=== PATIENT | female | born 1950 | race Caucasian/White ===

== ENCOUNTER 2021-02-01 13:53 | Outpatient (REF) | payer MEDICARE, SELFPAY | END 2021-02-01 13:54 | disposition home or self-care (01) | LOC: HO.LNP 13:53 | PROVIDERS: Visit Provider Internal Medicine | DX: R35.0 Frequency of micturition (principal) | CPT/HCPCS: 87086; 87088; 87186 ==

== ENCOUNTER 2021-07-09 09:57 | Outpatient (REF) | payer MEDICARE, SELFPAY ==
[2021-07-09 11:11] LABS: Hematocrit 46.7 % (37.0-47.0); Hemoglobin 15.6 g/dl (12.0-16.0); Mean Corpuscular HGB Conc 33.4 g/dl (31.0-35.0); Mean Corpuscular Hemoglobin 29.9 pg (27.0-33.0); Mean Corpuscular Volume 89.5 fL (80.0-98.0); Mean Platelet Volume 9.9 fL (9.4-12.3); Platelet Count 262 X10*3/uL (160-400); Red Blood Count 5.22 X10*6/uL (4.20-5.50); Red Cell Distribution Width 14.2 % (11.0-16.0)
[2021-07-09 12:22] LABS: Alanine Aminotransferase 18 U/L (0-31); Albumin Level 4.2 g/dL (3.5-5.0); Alkaline Phosphatase 88 U/L (39-117); Anion Gap 12 (12-20); Aspartate Amino Transferase 18 U/L (5-31); Bilirubin Total 0.7 mg/dL (0.0-1.0); Blood Urea Nitrogen 15 mg/dL (9-16); Calcium 9.6 mg/dL (8.4-10.2); Carbon Dioxide 29 mmol/L (22-29); Chloride 100 mmol/L (96-108); Cholesterol 195 mg/dL; Estimated Glomerular Filt Rate > 60; Glucose Fasting 92 mg/dL (60-99); HDL Cholesterol 40 mg/dL; LDL Cholesterol Calculated 123 mg/dl; Sodium 137 mmol/L (135-145); Total Protein 6.8 g/dL (6.5-8.0); Triglycerides 160 mg/dL
== END 2021-07-09 09:58 | disposition home or self-care (01) ==
LOC: HO.MANLDS 09:57
PROVIDERS: PCP Internal Medicine; Visit Provider Internal Medicine
DX: E78.00 Pure hypercholesterolemia, unspecified (principal); I10 Essential (primary) hypertension
CPT/HCPCS: 36415; 80053; 80061; 85027

== ENCOUNTER 2022-01-15 09:48 | Outpatient (REF) | payer MEDICARE, SELFPAY ==
[2022-01-15 11:26] LABS: MANUAL DIFF FLAG NO
[2022-01-15 11:31] LABS: Basophils Absolute Auto 0.1 X10*3/uL (0.0-0.2); Basophils Percent Auto 0.8 % (0-2); Eosinophils Absolute Auto 0.2 X10*3/uL (0.0-0.4); Eosinophils Percent Auto 2.9 % (0-4); Hemoglobin 15.3 g/dl (12.0-16.0); Imm Gran Abs Auto 0.03 X10*3/uL (0.00-0.03); Imm Gran Pct Auto 0.4 % (0.0-0.4); Lymphocytes Absolute Auto 1.9 X10*3/uL (1.2-4.9); Lymphocytes Percent Auto 26.2 % (20-40); Mean Corpuscular HGB Conc 33.3 g/dl (31.0-35.0); Mean Corpuscular Hemoglobin 29.5 pg (27.0-33.0); Mean Corpuscular Volume 88.6 fL (80.0-98.0); Mean Platelet Volume 9.8 fL (9.4-12.3); Monocytes Absolute Auto 0.5 X10*3/uL (0.1-1.2); Monocytes Percent Auto 6.8 % (2-11); Neutrophils Absolute Auto 4.6 x10*3/uL (2.0-8.3); Neutrophils Percent Auto 62.9 % (45-73); Platelet Count 281 X10*3/uL (160-400); Red Blood Count 5.19 X10*6/uL (4.20-5.50); White Blood Count 7.3 X10*3/uL (4.8-10.8)
[2022-01-15 11:44] LABS: Alanine Aminotransferase 12 U/L (0-31); Alkaline Phosphatase 84 U/L (39-117); Anion Gap 11 (12-20); Aspartate Amino Transferase 17 U/L (5-31); Bilirubin Total 0.7 mg/dL (0.0-1.0); Blood Urea Nitrogen 12 mg/dL (9-16); Calcium 9.1 mg/dL (8.4-10.2); Carbon Dioxide 28 mmol/L (22-29); Chloride 101 mmol/L (96-108); Cholesterol 174 mg/dL; Estimated Glomerular Filt Rate > 60; Glucose Random 98 mg/dL (60-115); HDL Cholesterol 39 mg/dL; LDL Cholesterol Calculated 110 mg/dl; Potassium 3.9 mmol/L (3.3-5.1); Total Protein 6.3 g/dL (6.5-8.0); Triglycerides 125 mg/dL
[2022-01-15 12:52] LABS: Sodium 136 mmol/L (135-145)
== END 2022-01-15 09:49 | disposition home or self-care (01) ==
LOC: HO.MANLDS 09:48
PROVIDERS: Visit Provider Physician Assistant
DX: E78.2 Mixed hyperlipidemia (principal)
CPT/HCPCS: 36415; 80053; 80061; 85025

== ENCOUNTER 2022-09-30 09:21 | Outpatient (REF) | payer OTHER, MEDICARE, SELFPAY ==
[2022-09-30 11:31] LABS: MANUAL DIFF FLAG NO
[2022-09-30 11:59] LABS: Basophils Absolute Auto 0.1 X10*3/uL (0.0-0.2); Basophils Percent Auto 0.8 % (0-2); Eosinophils Absolute Auto 0.2 X10*3/uL (0.0-0.4); Eosinophils Percent Auto 2.4 % (0-4); Hematocrit 47.7 % (37.0-47.0); Hemoglobin 15.7 g/dl (12.0-16.0); Imm Gran Abs Auto 0.02 X10*3/uL (0.00-0.03); Imm Gran Pct Auto 0.3 % (0.0-0.4); Lymphocytes Absolute Auto 1.9 X10*3/uL (1.2-4.9); Lymphocytes Percent Auto 29.6 % (20-40); Mean Corpuscular HGB Conc 32.9 g/dl (31.0-35.0); Mean Corpuscular Hemoglobin 28.8 pg (27.0-33.0); Mean Corpuscular Volume 87.5 fL (80.0-98.0); Mean Platelet Volume 10.3 fL (9.4-12.3); Monocytes Absolute Auto 0.5 X10*3/uL (0.1-1.2); Neutrophils Absolute Auto 3.7 x10*3/uL (2.0-8.3); Neutrophils Percent Auto 58.9 % (45-73); Platelet Count 254 X10*3/uL (160-400); Red Blood Count 5.45 X10*6/uL (4.20-5.50); Red Cell Distribution Width 14.9 % (11.0-16.0); White Blood Count 6.4 X10*3/uL (4.8-10.8)
[2022-09-30 13:41] LABS: Alanine Aminotransferase 13 U/L (0-31); Alkaline Phosphatase 89 U/L (39-117); Anion Gap 13 (12-20); Aspartate Amino Transferase 18 U/L (5-31); Blood Urea Nitrogen 17 mg/dL (9-16); Calcium 9.4 mg/dL (8.4-10.2); Carbon Dioxide 32 mmol/L (22-29); Chloride 98 mmol/L (96-108); Cholesterol 187 mg/dL; Estimated Glomerular Filt Rate > 60; Glucose Fasting 92 mg/dL (60-99); HDL Cholesterol 37 mg/dL; LDL Cholesterol Calculated 111 mg/dl; Potassium 3.5 mmol/L (3.3-5.1); Sodium 139 mmol/L (135-145); Total Protein 6.4 g/dL (6.5-8.0); Triglycerides 195 mg/dL
[2022-09-30 13:59] LABS: Vitamin D 25-OH Total 31.4 ng/mL (>30)
== END 2022-09-30 09:22 | disposition home or self-care (01) ==
LOC: HO.MANLDS 09:21
PROVIDERS: Visit Provider Internal Medicine
DX: E78.2 Mixed hyperlipidemia (principal); I10 Essential (primary) hypertension; E55.9 Vitamin D deficiency, unspecified
CPT/HCPCS: 36415; 80053; 80061; 82306; 85025

== ENCOUNTER 2023-03-24 09:47 | Outpatient (REF) | payer OTHER, MEDICARE, SELFPAY ==
[2023-03-24 13:15] LABS: MANUAL DIFF FLAG NO
[2023-03-24 13:39] LABS: Basophils Percent Auto 0.7 % (0-2); Eosinophils Absolute Auto 0.1 X10*3/uL (0.0-0.4); Eosinophils Percent Auto 1.7 % (0-4); Hematocrit 45.2 % (37.0-47.0); Hemoglobin 15.1 g/dl (12.0-16.0); Imm Gran Abs Auto 0.03 X10*3/uL (0.00-0.03); Imm Gran Pct Auto 0.5 % (0.0-0.4); Lymphocytes Absolute Auto 1.5 X10*3/uL (1.2-4.9); Lymphocytes Percent Auto 25.6 % (20-40); Mean Corpuscular HGB Conc 33.4 g/dl (31.0-35.0); Mean Corpuscular Hemoglobin 29.7 pg (27.0-33.0); Mean Corpuscular Volume 88.8 fL (80.0-98.0); Mean Platelet Volume 10.8 fL (9.4-12.3); Monocytes Absolute Auto 0.5 X10*3/uL (0.1-1.2); Neutrophils Absolute Auto 3.7 x10*3/uL (2.0-8.3); Neutrophils Percent Auto 63.5 % (45-73); Platelet Count 225 X10*3/uL (160-400); Red Blood Count 5.09 X10*6/uL (4.20-5.50); Red Cell Distribution Width 15.5 % (11.0-16.0); White Blood Count 5.8 X10*3/uL (4.8-10.8)
[2023-03-24 13:57] LABS: Alanine Aminotransferase 13 U/L (0-31); Alkaline Phosphatase 77 U/L (39-117); Anion Gap 10 (12-20); Aspartate Amino Transferase 19 U/L (5-31); Blood Urea Nitrogen 19 mg/dL (9-16); Calcium 9.6 mg/dL (8.4-10.2); Carbon Dioxide 31 mmol/L (22-29); Chloride 99 mmol/L (96-108); Cholesterol 183 mg/dL (<200); Estimated Glomerular Filt Rate > 60; Glucose Random 92 mg/dL (60-115); HDL Cholesterol 38 mg/dL (>40); LDL Cholesterol Calculated 109 mg/dL (<100); Potassium 3.6 mmol/L (3.3-5.1); Sodium 136 mmol/L (135-145); Total Protein 6.7 g/dL (6.5-8.0); Triglycerides 181 mg/dL (<150)
== END 2023-03-24 09:48 | disposition home or self-care (01) ==
LOC: HO.MANLDS 09:47
PROVIDERS: Visit Provider Physician Assistant
DX: I10 Essential (primary) hypertension (principal)
CPT/HCPCS: 36415; 80053; 80061; 85025

== ENCOUNTER 2024-10-03 08:58 | Outpatient (REF) | payer MEDICARE, SELFPAY ==
[2024-10-03 14:18] LABS: Cholesterol 133 mg/dL (<200); HDL Cholesterol 42 mg/dL (>40); LDL Cholesterol Calculated 63 mg/dL (<100); Triglycerides 144 mg/dL (<150)
== END 2024-10-03 08:59 | disposition home or self-care (01) ==
LOC: HO.MANLDS 08:58
PROVIDERS: Visit Provider Internal Medicine
DX: E78.2 Mixed hyperlipidemia (principal)
CPT/HCPCS: 36415; 80061

== ENCOUNTER 2024-11-15 08:55 | Outpatient (REF) | payer MEDICARE, SELFPAY ==
--- OUTSIDE RECORDS SUMMARY | 2024-11-15 09:20 | XMS_ITS | Data Portability ---
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) [facility] MODERATE MUST MEET 2 OUT OF 3 ELEMENTS: PROBLEMS, DATA OR RISK ELEMENT 1: PROBLEMS ADDRESSED 1 OR MORE CHRONIC ILLNESS WITH EXACERBATION OR 2 OR MORE STABLE CHRONIC ILLNESSES OR 1 UNDIAGNOSED NEW PROBLEM OR 1 ACUTE ILLNESS W/SYMPTOMS OR 1 ACUTE COMPLICATED INJURY ELEMENT 2: DATA MUST MEET 1 OF 3 CATEGORIES CATEGORY 1: REVIEW OF PRIOR EXTERNAL NOTES, REVIEW OF RESULTS, ORDERING OF EACH TEST, ASSESSMENT REQUIRING INDEPENDENT HISTORIAN OR CATEGORY 2: INDEPENDENT INTERPRETATION OF TESTS BY ANOTHER PHYSICIAN OR SPECIALIST OR CATEGORY 3: DISCUSSION OF MGT OR TEST INTERPRETATION W/EXTERNAL PHYSICIAN OR SPECIALIST ELEMENT 3: RISK RISK OF COMPLICATIONS AND/OR MORBIDITY OR MORTALITY OF PATIENT MANAGEMENT PROVIDER MUST THOROUGHLY DOCUMENT EACH ELEMENT THAT IS COVERED Not available 03/16/2024 11:34:42 08/31/2024 08/31/2024 [id number] [place] [address] (SHIRT CLOSER) MDM MODERATE MUST MEET 2 OUT OF 3 ELEMENTS: PROBLEMS, DATA OR RISK ELEMENT 1: PROBLEMS ADDRESSED 1 OR MORE CHRONIC ILLNESS WITH EXACERBATION OR 2 OR MORE STABLE CHRONIC ILLNESSES OR 1 UNDIAGNOSED NEW PROBLEM OR 1 ACUTE ILLNESS W/SYMPTOMS OR 1 ACUTE COMPLICATED INJURY ELEMENT 2: DATA MUST MEET 1 OF 3 CATEGORIES CATEGORY 1: REVIEW OF PRIOR EXTERNAL NOTES, REVIEW OF RESULTS, ORDERING OF EACH TEST, ASSESSMENT REQUIRING INDEPENDENT HISTORIAN OR CATEGORY 2: INDEPENDENT INTERPRETATION OF TESTS BY ANOTHER PHYSICIAN OR SPECIALIST OR CATEGORY 3: DISCUSSION OF MGT OR TEST INTERPRETATION W/EXTERNAL PHYSICIAN OR SPECIALIST ELEMENT 3: RISK RISK OF COMPLICATIONS AND/OR MORBIDITY OR MORTALITY OF PATIENT MANAGEMENT PROVIDER MUST THOROUGHLY DOCUMENT EACH ELEMENT THAT IS COVERED The patient presented to their appointment today for multiple concerns requiring moderate to high-level decision making and took over 40-45 minutes for an adequate and appropriate history, exam, assessment and treatment plan. This appointment was done with an established patient. Not available 08/31/2024 11:36:26 Plan of Treatment Reminders Order Date Submit Date Provider Last Modified By Organization Details Last Modified Time Details Appointments FOLLOW UP 15 2024 01:45P M DR HAINES Not available Not available Not available MEDICARE ANNUAL WELLNESS 2024 11:45A M DR HAINES Not available Not available Not available Lab CMP, serum or plasma 2024 025 [facility], [place], [address], 07/26/2024 13:38:12 hemoglobi n A1c, QN, blood 2024 025 [facility], [place], [address], 07/26/2024 14:12:39 CBC w/ auto diff 2024 025 [facility], [place], [address], 07/19/2024 15:44:35 Referral dermatolo gist referral 2023 024 [facility], [address] [place] [address], [address], 04/13/2024 09:14:48 Procedures None recorded. Surgeries None recorded. Imaging US, extremity , nonvascul ar, limited - right arm/forea rm after sig hematoma 2024 025 [facility] Central Scheduling (Not Breast), [address] [place], [address], 08/19/2024 10:02:26 Medication Orders metoprolo l succinate ER 100 mg tablet,ex tended release 24 hr 2024 025 [facility], [address], [place], [address], 08/31/2024 11:30:47 valsartan 80 mg tablet 2024 025 [facility], [address] [place] [address], [address], 08/31/2024 11:30:46 rosuvasta tin 40 mg tablet 2024 025 [facility], [address] [place] [address], [address], 08/19/2024 10:48:47 Plavix 75 mg tablet 2024 025 [facility], [address] [place] [address], [address], 07/19/2024 15:30:32 lorazepam 0.5 mg tablet 2024 025 [facility], [address] [place] [address], [address], 07/19/2024 15:25:10 Patient TargetsNo targets recorded. 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 [email or web address] [address], [address], 08/26/2024 13:46:19 Result Notes None recorded. Problems Name Problem SNOMED Code Status Onset Date Resolution Date Notes Provider Name and Address Organization Details Recorded Time Tobacco user 192673472 Active 2018 HERMINIO Handley [address] [place] [address], [address], [facility] 9 15:56:23 Basal cell carcinom a of skin 175704403 Active 2019 Ap Haines, DO [address] [place] [address], [address], [facility] 0 15:59:13 Anxiety disorder 792904056 Active 2019 Ap Haines DO [address] [place] [address], [address], [facility] 0 16:02:25 History of recurren t urinary tract infectio n 888083038 Active 2019 already has had extensiv e work up, just gets constant UTIs MARIZA SAGE [address] [place] [address], [address], [facility] 0 14:18:03 Osteopen ia 307592968 Active 2021 Ap Haines DO [address] [place] [address], [address], [facility] 2 11:38:29 Trochant chelle bursitis of right hip 2251566382 95229 Active 2022 Ap Haines, DO [address] [place] [address], [address], [facility] 3 11:31:54 Generali zed vitiligo 676812691 Active 2022 Ap Haines DO [address] [place] [address], [address], [facility] 3 11:33:35 Pain of bilatera l hip joints 4542686463 7026925 Active 2023 Ap Bondsda, DO [address] [place], [address], [facility] 4 11:12:42 Pain of bilatera l knee joints 2562322398 55977 Active 2023 Ap Cisneros Vamshiheather, DO [address] [place], [address], [facility] 4 11:13:41 Actinic keratosi s 484776198 Active 2023 Ap RomanJairon Haines, DO [address] [place], [address], [facility] 4 11:43:37 Anxiety 66132430 Active 2024 MARIZA SAGE [address] [place], [address], [facility] 5 15:24:[address] segment elevatio n myocardi al infarcti on 442751201 Active 2024 MARIZA SAGE [address] [place] [address], [address], [facility] 5 15:29:[address] segment elevatio n myocardi al infarcti on 739762906 Active 2024 2 stents Ap Haines, DO [address] [place] [address], [address], [facility] 5 11:21:52 Essentia l hyperten nic 28221109 Active 2024 MARIZA SAGE [address] [place] [address], [address], [facility] 5 12:15:50 Hematoma 821799113 Active 2024 MARIZA SAGE [address] [place], [address], [facility] 5 12:24:19 Hyperten sive disorder 30233314 Active 2017 Nataly boyle, [facility] 8 16:01:33 Coronary arterios clerosis 86757362 [facility] 16:01:[facility] History of tobacco use 3609757031 103 Completed 201702/25/2019October HERMINIO Handley [address] [place], [address], [place] [facility] 9 15:56:27 Hypercho lesterol emia 41922550 Active 2017 [facility] 16:01:47 Sprain of ankle 75953387 Active 2017 [facility] 8 16:01:55 Knee pain Active 2017 OA? left & right Nataly boyle [facility] 8 16:02:15 Cystitis 07082531 Active 2017 [facility] 16:02:21 Notes:Some problems listed i n Document: #[id number] could not be added to this patient's chart. Please review this document and add these problems to the patient's chart manually as needed. Problem Notes None recorded. Procedures Surgical History None recorded. Imaging Results Imaging Date Name Status LastModified by Organiz ation Details LastModified Time 08/23/2024 US, extremity, nonvascular, limited completed [email or web address] [address], [address], 08/26/2024 13:46:19 Procedure Notes None recorded. Medical Equipment None Reported. Allergies Allergen ID Allergen Name Allergen Category Reaction Reaction Severity Criticality Documentation Date Start Date Code Code System Note Provider Name and Address Organization Details Recorded Time 3151 nitrofura ntoin medicatio n diarrhea moderate Not available 01/03/2019 7454 RxNorm Ap Haines DO [address] [place], [address], [place] [facility] 9 14:26:27 Medications Name Sig Start Date Stop Date Status Note LastModified by Organization Details LastModified Time atorvastatin 80 mg tablet TAKE 1 TABLET BY MOUTH ONCE DAILY AT BEDTIME 08/19 completed Not Available Not Available Not Available valacyclovir 1 gram tablet Take 1 tablet 3 times a day by oral route for 7 days. 09/01 completed Not Available Not Available Not Available phenazopyrid ine 200 mg tablet 10/04 completed Not Available Not Available Not Available lisinopril 20 mg tablet TAKE 1 TABLET BY MOUTH ONCE DAILY 07/19 completed Not Available Not Available Not Available lovastatin 40 mg tablet TAKE 1 TABLET BY MOUTH ONCE DAILY 07/19 completed Not Available Not Available Not Available metoprolol succinate ER 100 mg tablet,exten ded release 24 hr TAKE 1 TABLET BY MOUTH ONCE DAILY active Not Available Not Available No t Available atenolol 25 mg tablet Take 1 tablet every day by oral route for 90 days. 01/15 completed Not Available Not Available Not Available valsartan 80 mg tablet TAKE 1 TABLET BY MOUTH ONCE DAILY active Not Available Not Available No t Available clopidogrel 75 mg tablet TAKE 1 TABLET BY MOUTH ONCE DAILY active Not Available Not Available No t Available sulfamethoxa zole 800 mg-trimethop rim 160 mg tablet TAKE 1 TABLET BY MOUTH EVERY 12 HOURS WITH MEALS FOR 7 DAYS 07/19 completed Not Available Not Available Not Available aspirin 81 mg tablet,delay ed release TAKE 1 TABLET BY MOUTH ONCE DAILY active Not Available Not Available No t Available lorazepam 0.5 mg tablet TAKE 1 TABLET BY MOUTH NEEDED FOR 30 DAYS active Not Available Not Available No t Available phenazopyrid ine 100 mg tablet TAKE 1 TABLET BY MOUTH THREE TIMES A DAY NEEDED FOR PAIN 06/18 completed Not Available Not Available Not Available nitrofuranto in macrocrystal 100 mg capsule 01/27 completed Not Available Not Available Not Available hydrochlorot hiazide 25 mg tablet TAKE 1 TABLET BY MOUTH ONCE DAILY 07/19 completed Not Available Not Available Not Available levofloxacin 500 mg tablet 07/15 completed Not Available Not Available Not Available atenolol 50 mg tablet TAKE 1 TABLET BY MOUTH ONCE DAILY 07/19 completed Not Available Not Available Not Available rosuvastatin 40 mg tablet TAKE 1 TABLET BY MOUTH ONCE DAILY active Not Available Not Available No t Available nitrofuranto in monohydrate/ macrocrystal s 100 mg capsule Take 1 capsule every 12 hours by oral route for 7 days. 01/03 completed Not Available Not Available Not Available Glucosamine- Chondrotin Takes one tablet once a day active Not Available Not Available No t Available Brilinta 90 mg tablet TAKE 1 TABLET BY MOUTH TWICE DAILY 07/19 completed Not Available Not Available Not Available Vitals Date Recorded Body height Body mass index (BMI) Body weight Heart rate Oxygen saturation Oxygen saturation in Arterial blood by Pulse oximetry Systolic blood pressure Diastolic blood pressure Provider Name and Address Organization Details Last Updated DateTime 4 159.39 cm 25.2 kg/m2 94470.5 2 g 67 /min 97 % 97 % 138 mm[Hg] 80 mm[Hg] Mirna Jensen [facility] 4 11:24:18 Date Recorded Body height Heart rate Oxygen saturation Oxygen saturation in Arterial blood by Pulse oximetry Systolic blood pressure Diastolic blood pressure Provider Name and Address Organization Details Last Updated DateTime 5 159.39 cm 70 /min 95 % 95 % 152 mm[Hg] 86 mm[Hg] Alina Okeefe [facility] Internal [facility] 5 15:17:39 Date Recorded Body height Body mass index (BMI) Body weight Heart rate Oxygen saturation Oxygen saturation in Arterial blood by Pulse oximetry Systolic blood pressure Diastolic blood pressure Provider Name and Address Organization Details Last Updated DateTime 5 159.39 cm 26.8 kg/m2 38878.8 6 g 68 /min 98 % 98 % 142 mm[Hg] 72 mm[Hg] Luis Villa [facility] 5 11:52:27 Date Recorded Body height Systolic blood pressure Diastolic blood pressure Systolic blood pressure Diastolic blood pressure Provider Name and Address Organization Details Last Updated DateTime 5 159.39 cm 148 mm[Hg] 85 mm[Hg] 150 mm[Hg] 84 mm[Hg] Alina Okeefe [facility] 5 10:28:39 Date Recorded Body height Body mass index (BMI) Body weight Heart rate Oxygen saturation Oxygen saturation in Arterial blood by Pulse oximetry Systolic blood pressure Diastolic blood pressure Provider Name and Address Organization Details Last Updated DateTime 5 159.39 cm 26.6 kg/m2 53793.2 6 g 74 /min 97 % 97 % 150 mm[Hg] 82 mm[Hg] Luis Villa [facility] 11:03:50 Social History Question Answer Notes LastModified by Organizat ion Details LastModified Time Tobacco Smoking Status Former Smoker Quit 07/04/24 Luis boyle [facility] 08/31/2024 11:02:15 What Was The Date Of Your Most Recent Tobacco Screening? 08/31/2024 Information not available 08/31/2024 How Much Tobacco Do You Smoke? No Information not available 08/31/2024 Sex: Unknown Functional Status Question Answer Note LastModified by Organization D etails LastModified Time Do you or have you ever used any other forms of tobacco or nicotine? No Information not available 01/17/2022 Mental Status None recorded. Family History Nothing Reported. Medical History No medical history recorded. Gynecological HistoryNo gynecological history recorded. Obstetrics History GPAL:G 0 P 0 0 0 0 Immunizations Vaccine Type Date Status Note Provider Nam e and Address Organization Details Recorded Time COVID-19, mRNA, LNP-S, PF, 30 mcg/0.3 mL dose 02/11/2021 completed Celsa boyle [facility] 04/04/2022 11:10:13 COVID-19, mRNA, LNP-S, PF, 30 mcg/0.3 mL dose 03/04/2021 completed Celsa boyle [facility] Internal [facility] 04/04/2022 11:10:22 Past Encounters Encounter ID Performer Location Encounter Start Date Encounter Closed Date Diagnosis/Indication Diagnosis SNOMED-CT Code Diagnosis ICD10 Code Diagnosis Note [id number] DO [facility]er [facility] [address] [facility] [address] 01/13/2018 11:16:56 01/13/2018 11:59:39 Hypertensive disorder 18444901 I10 still sl elevated here but is good at home Renewal of prescription 142275380 Z76.0 due for rx Essential hypertension 56580460 I10 stable at home History of tobacco use 3826735933 103 Z87.891 still smoking with no interest in quitting reviewed all the bad prob with tobacco [id number] DO [facility] [address] [facility] [address] 01/27/2018 14:08:41 01/27/2018 14:50:24 Atopic dermatitis 15775914 L20.9 likely allergic though etiology unclear nonetheles s, will give rx for shingles tx if vesicles or burning/it laura/pain develops topical cortisone may help resolve it Hypertensive disorder 38 981002 I10 stable on current regimen [id number] Ap Haines [facility] [address] [facility] [address] 09/01/2018 14:24:11 09/01/2018 15:00:22 Hypertensive disorder 58960462 I10 still sl elevated here but is good at home Hypercholesterolemia 136 59699 E78.00 will check later this year History of tobacco use 5457974793 103 Z87.891 again is still smoking with no interest in quitting reviewed all the bad prob with tobacco [id number] Ap Haines [facility] Internal [facility] [address] [facility] [address] 10/04/2018 14:10:07 10/04/2018 15:23:00 Sami hematuria 830309858 R31.0 will have her rechk ur and get a ur ctology also will check bladder [place] [id number] Ap Haines [facility] [address] [facility] [address] 10/15/2018 15:26:24 10/15/2018 16:32:35 Acute hemorrhagic cystitis 81783756 N30.01 now resolved with abx US of renal and bladder all wnl [id number] Ap Haines [facility] [address] [facility] [address] 12/15/2018 13:54:59 12/15/2018 14:45:13 Acute urinary tract infection 373847484 N39.0 Hypertensive disorder 38 564914 I10 stable on current regimen Tobacco de pendence syndrome 92268665 F17.200 [id number] Ap Haines [facility] [address] [facility] [address] 01/03/2019 13:29:00 01/03/2019 14:31:54 History of tobacco use 7496082976 103 Z87.891 again is still smoking with no interest in quitting reviewed all the bad prob with tobacco Hypertensive disorder 38 367508 I10 bp seems to be good and we will cont to use the med Hypercholesterolemia 136 88954 E78.00 will check later this year Essential hypertension 90454293 I10 stable at home Renewal of prescription 443535979 Z76.0 due for rx Anxiety 12758920 F41.9 [id number] pA Haines [facility] [address] [facility] [address] 02/25/2019 15:32:42 02/25/2019 15:58:27 Acute urinary tract infection 879520616 N39.0 Hypertensive disorder 38 246577 I10 stable on current regimen Tobacco user 272137052 Z 72.0 no plans to quit [id number] Ap Haines [facility] [address] [facility] [address] 03/16/2019 09:37:17 03/16/2019 10:20:44 Acute urinary tract infection 397133313 N39.0 will treat once again but begining to have strong suspicion of IC given lack of urine culture confirmati on and frequency of uti recommend retesting after sx resolve to ensure that blood in urine clears Abdominal pain 45447877 R10.9 resolved will monitor Hypertensive disorder 38 972267 I10 stable on current regimen Tobacco user 181876946 Z 72.0 no plans to quit [id number] Ap Haines [facility] [address] [facility] [address] 07/15/2019 13:30:57 07/15/2019 14:00:07 Hypertensive disorder 50020705 I10 bp seems to be good and we will cont to use the meds and will be checking Hypercholesterolemia 136 61479 E78.00 Will recheck in the spring Anxiety 61317379 F41.9 Well controlled with current med [id number] Ap Haines [facility] [address] [facility] [address] 12/21/2019 15:39:21 12/21/2019 16:05:48 Hypertensive disorder 06811124 I10 bp seems to be good and we will cont to use the meds and will be checking Hypercholesterolemia 136 02508 E78.00 Will recheck in the spring Basal cell carcinoma of skin 789694856 C44.[address] mcgill for basal cell ca Coronary arteriosclerosis 72874555 I25.10 she is asymptomat ic and doing ok Tobacco user 951733610 Z 72.0 not quitting Anxiety 68497493 F41.9 Well controlled with current med [id number] Ap Haines [facility] [address] [facility] [address] 02/22/2020 13:55:23 02/22/2020 14:29:23 Urinary tract infectious disease 30944320 N39.0 recurrent UTIs already been worked up with nothing found just has chronic condition Dysuria 69161808 R30.9 burning when she urinates states she caught it early this time so [place] [id number] Ap Haines [facility] [address] [facility] [address] 06/18/2020 08:49:06 06/18/2020 15:32:35 Coronary arteriosclerosis 28750156 I25.10 she is asymptomat ic and doing ok Hypertensive disorder 38 647791 I10 bp seems to be good and we will cont to use the meds and will be checking Hypercholesterolemia 136 29186 E78.00 Will recheck in the spring Essential hypertension 46414144 I10 stable at home Anxiety 41500495 F41.9 Well controlled with current med [id number] Ap Haines [facility] [address] [facility] [address] 02/01/2021 10:22:11 02/01/2021 11:13:42 Anxiety disorder 627561055 F41.9 usual no major issues Hypercholesterolemia 136 72844 E78.00 Will recheck in the spring Hypertensive disorder 38 939238 I10 bp seems to be good and we will cont to use the meds and will be checking Increased frequency of urination 252742149 R35.0 has obvious UTI with dipstick getting worseso [place] [id number] Ap Haines [facility] [address] [facility] [address] [address] 07/16/2021 08:10:39 07/17/2021 15:39:26 Anxiety disorder F41.1 stable Hypercholesterolemia 136 34534 E78.2 wnl, but patient wants to work on diet and discussed on what patient should be eating and what to eat in moderation Hypertensive disorder 38 281451 I10 BP stable [id number] Ap Haines [facility] [address] [facility] [address] [address] 01/17/2022 10:43:28 01/17/2022 11:50:58 Tobacco user 091556017 Z72.0 not quitting Anxiety disorder F41.1 usual no major issues Hypercholesterolemia 136 55365 E78.2 Will recheck in the spring Hypertensive disorder 38 367992 I10 bp seems to be good and we will cont to use the meds and will be checking Hepatitis C screening 41 5722180 Z11.59 ref Osteopenia 625710283 M85 .80 nope Screening for malignant neoplasm of colon 591522472 Z12.11 pt refuses Advance care planning 71 3734236 Z71.89 done Active or passive immunization 502009871 Z23 patient advised she is due for tdap, pneu , and shingles Depression screening 171 821897 Z13.31 phq 9 score of 4 Coronary arteriosclerosis 64619344 I25.10 [place] [id number] Ap Haines [facility] [address] [facility] [address] [address] 04/04/2022 10:54:57 04/04/2022 15:16:29 Anxiety disorder F41.1 usual no major issues Hypertensive disorder 38 248467 I10 bp seems to be good and we will cont to use the meds and will be checking Anxiety 32595815 F41.9 Well controlled with current med Tobacco user 035514035 Z 72.0 not quittingwa rnings again about dire circumstan isabel of cont smoking refuses to quit [id number] Ap Haines [facility] [address] [facility] [address] 10/01/2022 10:56:10 10/01/2022 11:39:38 Hypertensive disorder 19964575 I10 bp seems to be good and we will cont to use the meds and will be checking Hypercholesterolemia 136 64451 E78.2 Will recheck in the [facility] great LDL is only 111 Advance care planning 71 1545293 Z71.89 done Osteopenia 451476617 M85 .80 nope pt refuse bone density Coronary arteriosclerosis [id number] I25.10 she is asymptomat ic and doing okcont current med Anxiety disorder 8195432 06 F41.1 usual no major issues except for the [facility] [id number] Ap Haines [facility] Internal [facility] [address] [facility],[place] [address] 03/25/2023 10:58:10 03/25/2023 12:13:59 Hypercholesterolemia 24276127 E78.2 Will recheck in the [facility] great LDL is only 111 Hypertensive disorder 38 566563 I10 bp seems to be good and we will cont to use the meds and will be checking Trochanter ic bursitis of right hip [id number] 15211 M70.61 she will use her otc med topical as she doesnt want tx Generalized vitiligo 403 444372 L80 doesnt want to see derm or try any treatment [id number] Ap Haines [facility] [address] [facility] [place] [address] 09/16/2023 08:03:44 09/16/2023 11:19:37 Hypercholesterolemia 54966523 E78.2 Will recheck in the [facility] great LDL is only 109 Hypertensive disorder 38 523241 I10 bp seems to be good and we will cont to use the meds and will be checking Osteopenia 542456799 M85 .80 nope pt refuse bone density Pain of bi lateral hip joints [id number] 3915015 M25.551 M25.552 will get xrtays done Pain of bi lateral knee joints [id number] 45761 M25.561 M25.562 xr needed [id number] Ap A. Bigda, DO [facility] [address] [facility],[place] [address] 03/16/2024 11:14:33 03/16/2024 11:49:39 Coronary arteriosclerosis 83639269 I25.10 she is asymptomat ic and doing okcont current med Hypertensive disorder 38 060362 I10 bp seems to be good and we will cont to use the meds and will be checking Anxiety disorder 9828194 06 F41.1 usual no major issues except for the [facility] Actinic keratosis 007 L57.0 [id number] Ap Haines [facility] Internal Medicine [address] [facility] [address] 07/19/2024 15:09:42 07/19/2024 16:40:26 Anxiety 03867945 F41.[address] s egment elevation myocardial infarction 574069925 I21.3 right coronary artery [id number] Ap Haines [facility] Internal [facility] [address] [facility],[place] [address] 08/17/2024 11:39:27 08/17/2024 13:15:52 Hypercholesterolemia 03940564 E78.2 needs it reordered, already ordered by cardio Essential hypertension 21823427 I10 sees cardio, they did not f/u with other Acute ST s egment elevation myocardial infarction 325231051 I21.3 right coronary arterysten t placedhas echo scheduled Hematoma 858214775 E89.8 20 will set up with US extermity [id number] Ap Haines [facility] Internal Medicine [address] [facility] [address],[place] [address] 08/19/2024 10:18:54 08/19/2024 11:00:10 Hypertensive disorder 52247600 I10 will be taking readings at home to compare, if still elevated will adjust her medication does have a fu with cardio and the echo scheduled Acute ST s egment elevation myocardial infarction 660695543 I21.11 switch out to rosuvastat in [place] atorvastat in [id number] Ap Haines [facility] Internal Medicine [address] [facility] [address],[place] [address] 08/31/2024 10:52:37 08/31/2024 11:57:[address] segment elevation myocardial infarction 903549657 I21.11 3 stents placed but [facility] plavix now as she could not afford brilintaha s yet to see a follow up cardiologi st currently tolerating the meds Essential hypertension 72754262 I10 stable at home reviewed her home readings extensivel y Hypercholesterolemia 136 21680 E78.2 [facility] LDL is only 109 Hematoma 839182581 I97.6 30 now resolved and just residual ecchymosis notedcont heat and conserv tx Anxiety disorder 1959786 06 F41.1 usual and overall is stable despite the trauma of an emergent catheteriz ation for ongoing [place] [facility] Concerns Section Related Observation LastModified by Organization Detai ls LastModified Time None Recorded Concern Status LastModified by Organization Details LastModified Time None Recorded Advance Directives Directive None Recorded Payers Encounter Date Sequence Insurance Name Policy Number Policy Monreal Covered Member ID Monreal Member ID Guarantor Name 03/16/2024 1 [facility] (MEDICARE REPLACEMENT/ ADVANTAGE - PPO) [id number] Ml E [employer] [id number] Ml [employer] 07/19/2024 1 [facility] (MEDICARE REPLACEMENT/ ADVANTAGE - PPO) [id number] Ml E [employer] [id number] Ml [employer] 08/17/2024 1 [facility] (MEDICARE REPLACEMENT/ ADVANTAGE - PPO) [id number] Ml E [employer] [id number] Ml [employer] 08/19/2024 1 [facility] (MEDICARE REPLACEMENT/ ADVANTAGE - PPO) [id number] Ml E [employer]ck [id number] Ml [employer] 08/31/2024 1 [facility] (MEDICARE REPLACEMENT/ ADVANTAGE - PPO) [id number] Ml E [employer] [id number] Ml [employer] Notes Date Note Type Note Provider Name and Address Organization Details Recorded Time 4 text/htm l Care Management - HypertensionReported bypatient.Self Care:not under emotional stress Severity:symptoms are improving; does not interfere with daily activities Associated Symptoms:no dizziness; no lightheadedness; no chest pain; no shortness of breath; no palpitations; no edema; no calf muscle cramps; no blurred vision; no confusion; no headaches; no fatigue her e for rechk of her bp doing ok bp was high last week at 150/80 but now is much betterdoing good otherwiseno cp no sob reviewed cbc is normal Ap Haines DO [address] [place], [address], [facility] Internal Medicine 03/16/2024 11:45:58 5 text/htm l hospital d/c the patient reports that she was having severe neck and shoulder pain, took an ativan and 3 baby ASA and went back to bed, woke up still having serious pain, ended up at the ERthe patient was on lovastatin, lisinopril and HTCZ previous to thisgood cholesterol, LDL 97 and HDL 42 stopped above, started on valsartan 80 mgswitched up to atorvastatin 80 mgswitch to plavix, cheaper for patient medication list changed the patient has since quit smoking the patient and I reviewed medshas f/u with cardiology will recheck her labs MARIZA SAGE [address] [place], [address], [facility] Internal Medicine 07/19/2024 15:45:43 5 text/htm l BP check recommended maybe holding the atorvastatin to see if she gets some elevation of the muscle pains and aches she is has been having, if it is causing those side effects will set up with the US to check her R arm, had sig hematoma, reports there is some residual swelling and painagreed to thiscould be a reaction from the atorvastatin will [facility] her numbers at home before I do anythingalso wants to see what her cardio wants to do has echo scheduled will have her f/u on Thursday to see how she did otherwise will cont on meds as prescribed has bw from cardio for repeat Lipid MARIZA SAGE [address] [place], [address], [facility] Medicine 08/17/2024 12:38:04 5 text/htm l f/u BP check BP check with her new cuff is pretty accurate to what we are getting herewill be taking readings at home for me to compare what her more accurate reading is she did notice improvement of her dry mouth, aches, hip pain off the atorvastatinwill switch to the rosuvastatin and see how she feels in two weeks her BP recheck in her left arm sitting after 10 minutes 132/78 which is better will get me those readings and f/u in two weeks MARIZA SAGE [address] [place], [address], [facility] Internal Medicine 08/19/2024 10:56:12 5 text/htm l Care Management - Coronary Artery Disease (CAD)Reported bypatient.Self Care:not under emotional stress Severity:symptoms are improving; does not interfere with daily activities Associated Symptoms:no chest pain; no shortness of breath; no left arm pain; no back pain; no neck pain; no left shoulder pain; no right shoulder pain; no numbness; no sweatsCare Management - HypertensionReported bypatient.Self Care:not under emotional stress Severity:symptoms are improving; does not interfere with daily activities Associated Symptoms:no dizziness; no lightheadedness; no chest pain; no shortness of breath; no palpitations; no edema; no calf muscle cramps; no blurred vision; no confusion; no headaches; no fatigue here for rechk and is doing ok overallno cp no sobstates sleeping okno further chest pain and is feeling ok she is s/p RCA stent for acute ST seg [place] Ap Haines DO [address] [facility], [place], [address], [facility] Internal Medicine 08/31/2024 11:37:45 OBGyn Episode No OBEpisode recorded.
--- OUTSIDE RECORDS SUMMARY | 2024-11-15 09:20 | XMS_ITS | Continuity of Care Document ---
Author Organization [facility] Address [address] [address]- Care Team Providers Care Supervisor Slate Splitting Name Role Phone Ap Clark DO Primary Care Physician [phone] [id number]s): 10/13/24 - 11/12/24 [facility] [address] [address]- Attending Physician: Pedro Pablo Arauz Admitting Physician: Pedro Pablo Arauz Referring Physician: AdmtrPedro Pablo Encounter Type: Triage Allergies, Adverse Reactions, Alerts Substance Criticality Severity Reaction Reaction Severity Status penicillins 1 unknown Active 1Patient states that she cannot remember her reaction, and that is was so long ago Medications acetaminophen 500 mg oral tablet 1 tablet = 500 mg, By Mouth, Every 4 hours, PRN as needed for pain, Maintenance, 07/04/24 5:01:00 PM EST, Tablet, Partial fill upon patient request if the prescription is for a schedule II opioid drug. Start Date: 07/04/24 Status: Ordered Repeat number: 1 aspirin 81 mg oral capsule = 81 mg, By Mouth, Daily, # 30 capsule, 1 Refills, Maintenance, 07/06/24 3:52:00 PM EST, Capsule, [id number], Partial fill upon patient request if the prescription is for a schedule II opioid drug., 160, cm, 07/04/24 13:01:00 EST, Height, 65.8, kg, 07/04/24 17:25:00 EST, Dry Weight Start Date: 07/06/24 Status: Ordered Quantity: 30.0 Unit: capsule Repeat number: 2 Crestor 40 mg oral tablet 1 tablet = 40 mg, By Mouth, Daily, # 30 tablet, 0 Refills, Maintenance, 10/25/24 11:07:00 AM EDT, Tablet, Partial fill upon patient request if the prescription is for a schedule II opioid drug. Start Date: 10/25/24 Status: Ordered Quantity: 30.0 Unit: tablet Repeat number: 1 Entresto 24 mg-26 mg oral tablet 1 tablet, By Mouth, 2 times a day, # 180 tablet, 3 Refills, Maintenance, 10/25/24 12:49:00 PM EDT, Tablet, [facility], Partial fill upon patient request if the prescription is for a schedule II opioid drug., 1 tablet By Mouth 2 times a day, 160, cm, 10/25/24 11:07:00 EDT, Height, 65.8, kg, 07/04/24 17:25:00 EST, Dry Weight Start Date: 10/25/24 Status: Ordered Quantity: 180.0 Unit: tablet Repeat number: 4 Indication: Cardiomyopathy, unspecified Glucosamine Chondroitin Advanced oral tablet 3 tablet, By Mouth, Daily, 0 Refills, Maintenance, 10/25/24 11:08:00 AM EDT, Partial fill upon patient request if the prescription is for a schedule II opioid drug. Start Date: 10/25/24 Status: Ordered Repeat number: 1 Lipitor 80 mg oral tablet = 80 mg, By Mouth, Daily at bedtime, # 30 tablet, 1 Refills, Maintenance, 07/06/24 3:47:00 PM EST, Tablet, [facility], Partial fill upon patient request if the prescription is for a scheduleII opioid drug., 160, cm, 07/04/24 13:01:00 EST, Height, 65.8, kg, 07/04/24 17:25:00 EST, Dry Weight Start Date: 07/06/24 Status: Ordered Quantity: 30.0 Unit: tablet Repeat number: 2 LORazepam 0.5 mg oral tablet 0.5 tablet = 0.25 mg, By Mouth, Daily, PRN as needed for anxiety, (using tablets that in 2021 - unable to confirm prescription with Rx due to time passed), Maintenance, 07/04/24 5:00:00 PM EST, Tablet, Partial fill upon patient request if the prescription is for a schedule II opioid drug. Start Date: 07/04/24 Status: Ordered Repeat number: 1 metoprolol 100 mg oral tablet, extended release 100 mg, By Mouth, Daily, # 30 tablet, Refills 1, Tot. Refills 1, Maintenance, 07/06/24 3:48:00 PM EST, Route to Pharmacy Electronically, [facility], Partial fill upon patient request if the prescription is for a schedule II opioid drug., 160, cm, 07/04/24 13:01:00 EST, Height, 65.8, kg, 07/04/24 17:25:00 EST, Dry Weight Start Date: 07/06/24 Status: Ordered Quantity: 30.0 Unit: tablet Repeat number: 2 Plavix 75 mg oral tablet 75 mg, 1, tablet, By Mouth, Daily, # 90 tablet, Refills 3, Maintenance, 08/16/24 2:50:00 PM EST, Partial fill upon patient request if the prescription is for a schedule II opioid drug. Start Date: 08/16/24 Status: Ordered Quantity: 90.0 Unit: tablet Repeat number: 1 Problem List Condition Confirmation Course Effective Dates Status Health St atus Informant Tobacco use Confirmed Active Hyperlipidemia Confirmed Active Hypertension Confirmed Active Patient Care team information Care Team Personnel Name: Ap Clark DO Position: Reference Physician Member Role: PCP Address: [address] [place] [address] Internal Medicine [place], [place] [address] Telecom: Name: Meredith Flores RN Position: S RN Member Role: Primary Care Nurse Care Team Related Persons Name: JEREMIAS HOBBS Insurance Providers Guarantor name: [employer] Plan Information #: 1 Payer: [employer] Member Number: NA Policy Number: NA Group Number: NA
[2024-11-15 13:07] LABS: MANUAL DIFF FLAG NO
[2024-11-15 13:11] LABS: Basophils Absolute Auto 0.1 X10*3/uL (0.0-0.2); Basophils Percent Auto 0.9 % (0-2); Eosinophils Absolute Auto 0.3 X10*3/uL (0.0-0.4); Eosinophils Percent Auto 4.8 % (0-4); Hematocrit 38.7 % (37.0-47.0); Hemoglobin 12.5 g/dl (12.0-16.0); Imm Gran Abs Auto 0.01 X10*3/uL (0.00-0.03); Imm Gran Pct Auto 0.2 % (0.0-0.4); Lymphocytes Absolute Auto 1.4 X10*3/uL (1.2-4.9); Lymphocytes Percent Auto 24.1 % (20-40); Mean Corpuscular HGB Conc 32.3 g/dl (31.0-35.0); Mean Corpuscular Hemoglobin 28.7 pg (27.0-33.0); Monocytes Absolute Auto 0.4 X10*3/uL (0.1-1.2); Monocytes Percent Auto 7.4 % (2-11); Neutrophils Absolute Auto 3.5 x10*3/uL (2.0-8.3); Neutrophils Percent Auto 62.6 % (45-73); Platelet Count 222 X10*3/uL (160-400); Red Blood Count 4.35 X10*6/uL (4.20-5.50); Red Cell Distribution Width 14.5 % (11.0-16.0); White Blood Count 5.7 X10*3/uL (4.8-10.8)
[2024-11-15 14:02] LABS: Cholesterol 139 mg/dL (<200); HDL Cholesterol 44 mg/dL (>40); LDL Cholesterol Calculated 75 mg/dL (<100); Triglycerides 103 mg/dL (<150)
[2024-11-15 14:19] LABS: Vitamin D 25-OH Total 25.3 ng/mL (>30)
== END 2024-11-15 08:56 | disposition home or self-care (01) ==
LOC: HO.MANLDS 08:55
PROVIDERS: Visit Provider Internal Medicine
DX: E78.00 Pure hypercholesterolemia, unspecified (principal); E55.9 Vitamin D deficiency, unspecified
CPT/HCPCS: 36415; 80061; 82306; 85025